=== PATIENT | male | born 1995 | race Caucasian/White ===

== ENCOUNTER 2024-03-01 11:31 | Outpatient (CLI) | payer BC, SELFPAY | END 2024-03-01 11:32 | disposition home or self-care (01) | LOC: LAB 11:32 | PROVIDERS: Visit Provider Nurse Practitioner | DX: K13.70 Unspecified lesions of oral mucosa (principal) | CPT/HCPCS: 87252 ==

== ENCOUNTER 2024-07-15 06:50 | Outpatient (CLI) | payer BC, SELFPAY | END 2024-07-15 06:51 | disposition home or self-care (01) | LOC: NFLDREF 07-17 22:24 | PROVIDERS: Visit Provider Physician Assistant | DX: Z31.9 Encounter for procreative management, unspecified (principal) | CPT/HCPCS: 89322 ==